=== PATIENT | female | born 1950 | race Caucasian/White ===

== ENCOUNTER 2021-01-06 14:17 | Emergency (ER) | payer MEDICARE ==
[2021-01-06 14:25] VITALS: BP 113/74; PULSE 94; RESP 16; TEMP 99.2
--- NOTE | 2021-01-06 14:49 | ED ---
General Adult HPI - General Chief complaint: Skin/Abscess/Foreign Body Stated complaint: Rash/Swelling, poss bug bite Time Seen by Provider: 01/06/21 14:27 Source: patient, RN notes reviewed Mode of arrival: ambulatory Limitations: no limitations - History of Present Illness Initial comments: This 70-year-old female presents emergency Department chief complaint of left- sided abdominal rash. Patient states started a few weeks ago after a bug bite states redness seems to be spreading no significant night sweats though usual no reported fevers or chills she states it's warm to touch not tender. She is unsure what bit her. Patient offers no complaints. - Related Data Previous Rx's Medication Instructions Recorded Clindamycin HCl 300 mg PO Q6HR #40 cap 01/06/21 Allergies Allergy/AdvReac Type Severity Reaction Status Date / Time amylase [From Ilozyme] Allergy Rash/Hives Verified 01/06/21 14:19 lipase [From Ilozyme] Allergy Rash/Hives Verified 01/06/21 14:19 protease [From Ilozyme] Allergy Rash/Hives Verified 01/06/21 14:19 Penicillins AdvReac Rash/Hives Verified 01/06/21 14:19 Sulfa (Sulfonamide AdvReac Swelling Verified 01/06/21 14:19 Antibiotics) Review of Systems ROS Statement: Those systems with pertinent positive or pertinent negative responses have been documented in the HPI. ROS Other: All systems not noted in ROS Statement are negative. Past Medical History Past Medical History: Asthma, Hypertension History of Any Multi-Drug Resistant Organisms: None Reported Past Surgical History: No Surgical Hx Reported, Appendectomy, Cholecystectomy, Orthopedic Surgery Additional Past Surgical History / Comment(s): right foot Left knee Past Psychological History: No Psychological Hx Reported Smoking Status: Never smoker Past Alcohol Use History: Occasional Past Drug Use History: None Reported General Exam Limitations: no limitations General appearance: alert, in no apparent distress Head exam: Present: atraumatic, normocephalic, normal inspection Respiratory exam: Present: normal lung sounds bilaterally. Absent: respiratory distress, wheezes, rales, rhonchi, stridor Cardiovascular Exam: Present: regular rate, normal rhythm, normal heart sounds. Absent: systolic murmur, diastolic murmur, rubs, gallop, clicks GI/Abdominal exam: Present: soft, normal bowel sounds, other (Left-sided or abdomen there is small patchy area with dry skin and surrounding erythema that comes to left side of her abdomen increased warmth with palpation, symptoms and nontender). Absent: distended, tenderness, guarding, rebound, rigid Course Vital Signs 01/06/21 14:19 Temperature 99.2 F Pulse Rate 94 Respiratory 16 Rate Blood Pressure 113/74 O2 Sat by Pulse 99 Oximetry Medical Decision Making - Medical Decision Making Patient does have left-sided abdominal wall cellulitis she has no rebound tenderness vitals are essentially unremarkable. Patient's had blood work with her PCP with no acute findings patient will be placed on results oral antibiotics with close follow-up return parameters were discussed patient agrees with this plan. Disposition Clinical Impression: Abdominal wall cellulitis Disposition: HOME SELF-CARE Condition: Stable Instructions (If sedation given, give patient instructions): Cellulitis (ED) Additional Instructions: Please return to the Emergency Department if symptoms worsen or any other concerns. Prescriptions: Clindamycin HCl 300 mg PO Q6HR #40 cap Is patient prescribed a controlled substance at d/c from ED?: No Referrals: Nonstaff,Physician [Primary Care Provider] - 1-2 days Time of Disposition: 14:49
== END 2021-01-06 15:09 | disposition home or self-care (01) ==
LOC: EC 14:17
DX: L03.311 Cellulitis of abdominal wall (principal); I10 Essential (primary) hypertension; J45.909 Unspecified asthma, uncomplicated; Z88.0 Allergy status to penicillin
CPT/HCPCS: 99282